=== PATIENT | male | born 1970 | race Hispanic/Latino ===

== ENCOUNTER 2018-09-09 12:29 | Emergency (ER) | payer OTHER, SELFPAY ==
[2018-09-09 13:06] VITALS: BP 115/74; PULSE 71; RESP 18; TEMP 36.8; O2SAT 98
--- NOTE | 2018-09-09 14:43 | ED.HA ---
HPI - Headache General Chief Complaint: Headache Stated Complaint: HIT HEAD Time Seen by Provider: 09/09/18 14:41 Source: patient and other (friend) Mode of arrival: ambulatory Limitations: language barrier (tamazight) History of Present Illness HPI Narrative: This is a 48-year-old male comes to the emergency department complaining of hitting his head 3 days ago. Patient slipped and fell, he did hit his head on the floor when he fell but actually hit the left side of his head against a forklift fork when he fell. Patient did not get knocked out. He did not lose consciousness. He has felt a little bit warm on that side of his head. It feels sort of funny. He denies any headache. He denies any vision changes. He denies any nausea or vomiting. No neck pain, no back pain. No weakness or numbness in his extremities. Patient denies any other medical history. He does not take medicines regularly. He has had repair of a fracture on his right forearm. He does not smoke or drink alcohol or use street drugs. This was at work and he has brought L&I paperwork. Review of Systems Review of Systems ROS Unobtainable: All systems reviewed & are unremarkable except as noted in HPI and below Constitutional Denies chills, Denies fever(s), Denies headache(s), Denies lethargy, Denies weakness and Reports other (LOC) ENT Ears, Nose, Mouth, and Throat: Denies headache(s) and Denies neck pain Cardiovascular Denies syncope and Denies lightheadedness Gastrointestinal Gastrointestinal: Denies abdominal pain, Denies nausea and Denies vomiting Genitourinary Denies urinary incontinence Musculoskeletal Denies back pain, Denies limited range of motion, Denies neck pain, Denies numbness and Denies tingling Integumentary/Breasts Denies unusual bruising, Denies wounds (no bleeding) and Denies other (lumps on head) Neurologic Reports as per HPI, Denies confusion, Denies syncope, Denies headache(s), Denies numbness, Denies tingling and Denies weakness Psychiatric Denies confusion [facility], [facility] Social History Smoking Status: Never smoker Social History Smoking Status: Never smoker Exam Narrative Exam Narrative: GEN: Patient appears in no acute distress. HEAD: No evidence of trauma, no raccoon/Bonilla sign. NECK: Nontender, painless range of motion, trachea midline Negative for Nexus criteria, there is no mid line tenderness, distracting injury, altered mental status, neuro deficit, recent EtOH. EYES: PERRLA, EOMI ENT: External inspection normal, trachea is midline, TM's are normal no hemotypanum, Nares are clear, no septal hematoma, no dental or oral injury, airway is normal and with normal occlusion, No bony tenderness RESP: Chest is nontender and has symmetric movement, no ecchymosis, breath sounds are normal no crackles, wheezes or rales CVS: Heart sounds are normal, no murmur noted, No JVD. ABG/GI: Nontender, soft, normal bowel sounds, no distention, no organomegaly NEURO: Oriented AOx3, neuro is grossly intact, sensation and motor is normal all 4 extremities moving, cranial nerves II through XII are intact, GCS is 15 PSYCH: Normal mood and affect SKIN: Intact, warm and dry, no crepitus and without decubitus BACK: No CVA tenderness, no vertebral tenderness, no step-off's, no crepitus EXT: Atraumatic, normal range of motion and gait. Initial Vital Signs Initial Vital Signs: Vital Signs Temperature 98.2 F 09/09/18 13:06 Pulse Rate 71 09/09/18 13:06 Respiratory Rate 18 09/09/18 13:06 Blood Pressure 115/74 09/09/18 13:06 Pulse Oximetry 98 09/09/18 13:06 Course Vital Signs - 8 hr 09/09/18 13:06 09/09/18 15:11 Temperature 98.2 F Pulse Rate 71 63 Respiratory Rate 18 Blood Pressure 115/74 111/73 Pulse Oximetry 98 98 MDM - Headache MDM Narrative Medical decision making narrative: Patient does not meet any criteria for head CT, he has negative nexus criteria. He is complaining of sort of feeling and a little bit discomfort but no other alterations his mental status, no other neurologic changes. We discussed that he could potentially have a mild concussion. He feels fine doing his normal activities plan for DC home. I did asked patient if he wanted to be off work for any period of time and he would like to return to work. Discharge Plan Departure Patient Disposition: Home Clinical Impression: Head injury Discharge Date/Time: 09/09/18 15:12 Interventions: ED Discharge Assessment Last Done: 09/09/18 15:11 Instructions: DI for Concussion, Head Injury (Alternative Therapy) Activity Restrictions/Additional Instructions: Follow-up with L&I in the next 5-7 days for recheck if there is no improvement in your symptoms. You may take Tylenol and/or ibuprofen for pain. Return to the emergency department for altered mental status, new confusion, sudden severe headaches, new vision changes, persistent vomiting, new weakness, numbness or inability to use your arms or legs.
[2018-09-09 15:11] VITALS: BP 111/73; PULSE 63; O2SAT 98
== END 2018-09-09 15:12 | disposition home or self-care (01) ==
PROVIDERS: Emergency Provider Emergency Medicine
DX: S09.90XA Unspecified injury of head, initial encounter (principal); W01.198A Fall on same level from slipping, tripping and stumbling with subsequent striking against other object, initial encounter; Y99.0 Civilian activity done for income or pay
CPT/HCPCS: 99282